=== PATIENT | male | born 1990 | race Caucasian/White ===

== ENCOUNTER 2017-06-14 10:20 | Emergency (ER) | payer SELFPAY ==
[2017-06-14] MEDS ORDERED: Acetaminophen 500 MG TAB ONE (10:40)
== END 2017-06-14 11:11 | disposition home or self-care (01) ==
LOC: SCSER 10:20
DX: J10.1 Influenza due to other identified influenza virus with other respiratory manifestations (principal); F17.210 Nicotine dependence, cigarettes, uncomplicated; Z87.442 Personal history of urinary calculi
CPT/HCPCS: 99283

== ENCOUNTER 2017-06-30 15:13 | Emergency (ER) | payer SELFPAY ==
--- NOTE | 2017-06-30 15:51 | RAD ---
3 VIEWS LEFT WRIST: Date: 06/30/17 INDICATION: Pain. FINDINGS: No fracture or dislocation. No significant arthropathy. IMPRESSION: No acute osseous abnormality of the left wrist. POS: [email or web address]
== END 2017-06-30 16:31 | disposition home or self-care (01) ==
LOC: SCSER 15:13
DX: M25.532 Pain in left wrist (principal); F17.210 Nicotine dependence, cigarettes, uncomplicated

== ENCOUNTER 2017-07-05 11:21 | Emergency (ER) | payer SELFPAY ==
[2017-07-05] MEDS ORDERED: Adacel (T-DAP) 0.5 ML VIAL ONE (11:35)
== END 2017-07-05 12:03 | disposition home or self-care (01) ==
LOC: SCSER 11:21
DX: S61.213A Laceration without foreign body of left middle finger without damage to nail, initial encounter (principal); F17.210 Nicotine dependence, cigarettes, uncomplicated; Z23 Encounter for immunization; Z87.442 Personal history of urinary calculi; Z71.6 Tobacco abuse counseling; W27.8XXA Contact with other nonpowered hand tool, initial encounter
CPT/HCPCS: 90471; 90715; 99406

== ENCOUNTER 2018-10-17 11:43 | Emergency (ER) | payer SELFPAY ==
--- NOTE | 2018-10-17 12:22 | RAD ---
XR Chest 1 View Portable HISTORY: Chest pain COMPARISON: None FINDINGS: The heart size is normal. The lungs are well expanded without focal areas of consolidation, pneumothorax or pleural effusions. IMPRESSION: No radiographic evidence of acute cardiopulmonary process.
== END 2018-10-17 12:47 | disposition home or self-care (01) ==
LOC: SCSER 11:43
DX: R07.89 Other chest pain (principal); F14.90 Cocaine use, unspecified, uncomplicated; F17.210 Nicotine dependence, cigarettes, uncomplicated; Z87.442 Personal history of urinary calculi
CPT/HCPCS: 71045; 93005